=== PATIENT | male | born 1945 | race Caucasian/White ===

== ENCOUNTER 2017-11-21 18:05 | Emergency (ER) | payer MEDICARE, BC ==
[~2017-11-21] VITALS: Ht 177.8 cm; Wt 85.8 kg
[~2017-11-21 18:05] MED LIST: ALPR-475 PO; AMIO400T5 PO; APIX5TAB PO; DIGO125T PO; LOVA10TA PO; METO25TA35 PO
[2017-11-21 18:11] VITALS: BP 142/85
== END 2017-11-21 19:22 | disposition home or self-care (01) ==
LOC: ED 19:15
DX: H91.91 Unspecified hearing loss, right ear (principal); I48.91 Unspecified atrial fibrillation; I48.92 Unspecified atrial flutter
CPT/HCPCS: 99281; 99283